=== PATIENT | female | born 1980 | race Caucasian/White ===

== ENCOUNTER → 2018-06-21 | Outpatient (CLI) | payer OTHER | LOC: FIMAGING 09:44 | PROVIDERS: ATTEND Orthopaedic Surgery | DX: Z01.818 Encounter for other preprocedural examination (principal); M17.12 Unilateral primary osteoarthritis, left knee ==

== ENCOUNTER 2018-07-07 09:03 | Observation (INO) | payer OTHER ==
--- NOTE | 2018-07-07 06:18 | PDHPUP ---
History & Physical Update H&P update statement: This history and physical update is based on an assessment of the patient which was completed after admission or registration (within 24 hours), but prior to the surgery/procedure. H&P update: H&P reviewed & patient examined, no change in patient's condition since H&P completed
[~2018-07-07 09:03] MED LIST: ROPIVACAINE 0.2% 80 MG, EPINEPHrine 0.2 MG, KETOROLAC TROMETHAMINE 30 MG in SYRINGE 0 ML IU ONE; TRANEXAMIC ACID 3,000 MG in NS (SYRINGE) 50 ML IRR ONE; TRANEXAMIC ACID 3,000 MG/50 ML BAG IRR ONE; VANCOMYCIN 1 GM VIAL ONE
[2018-07-07] MEDS ORDERED: ACETAMINOPHEN 325 MG TAB PO ONE (09:24)
[2018-07-07] MEDS ORDERED: DEXAMETHASONE 4 MG/ML VIAL IVP ONE (09:24)
[2018-07-07] MEDS ORDERED: FAMOTIDINE 20 MG TAB PO ONE (09:24)
[2018-07-07] MEDS ORDERED: ceFAZolin 2 GM/DEXTROSE 100 ML IV ONE (09:24)
[2018-07-07] MEDS ORDERED: LR 1,000 ML IV ONE (09:26)
--- NOTE | 2018-07-07 09:43 | PDANEPAE ---
ANE History of Present Illness OA of knee ANE Past Medical History - Cardiovascular History Hx Hypertension: No Hx Arrhythmias: No Hx Chest Pain: No Hx Coronary Artery / Peripheral Vascular Disease: No Hx CHF / Valvular Disease: No Hx Palpitations: No - Pulmonary History Hx COPD: No Hx Asthma/Reactive Airway Disease: No Hx Recent Upper Respiratory Infection: No Hx Oxygen in Use at Home: No Hx Sleep Apnea: No Sleep Apnea Screening Result - Last Documented: Negative - Neurologic History Hx Cerebrovascular Accident: No Hx Seizures: No Hx Dementia: No - Endocrine History Hx Diabetes: No Hypothyroid: No Hyperthyroid: No Obesity: moderate - Renal History Hx Renal Disorders: No - Liver History Hx Hepatic Disorders: No - Neurological & Psychiatric Hx Hx Neurological and Psychiatric Disorders: No - Cancer History Hx Cancer: No - Congenital Disorder History Hx Congenital Disorders: No - GI History GERD: mild Hx Gastrointestinal Disorders: Yes Gastrointestinal History Comment: acid reflux - Other Health History Other Health History: none - Chronic Pain History Chronic Pain: Yes (right knee) - Surgical History Prior Surgeries: 2016 knee scope ANE Review of Systems Review of systems is: negative Review of Systems: - Exercise capacity METS (RN): 4 METS ANE Patient History - Allergies Allergies/Adverse Reactions: No Known Allergies Allergy (Verified 06/23/18 16:41) - Home Medications Home medications: home medication list seen and reviewed Home Medications: Adderall 10 MG (*) 06/23/18 [Last Taken 07/05/18] Celebrex (*) 06/23/18 [Last Taken 07/06/18] Prilosec 06/23/18 [Last Taken 07/04/18] Trazodone HCl 06/23/18 [Last Taken 07/06/18] - NPO status NPO Status: no food or drink >8 hours NPO Since - Liquids (Date): 07/06/18 NPO Since - Liquids (Time): 20:00 NPO Since - Solids (Date): 07/06/18 NPO Since - Solids (Time): 16:00 - Anes Hx Anes Hx: no prior problems - Smoking Hx Smoking Status: Never smoked Marijuana use: No - Alcohol Use Alcohol Use: Rarely - Family Anes Hx Family Anes Hx: none Family Hx Anesthesia Complications: none ANE Labs/Vital Signs - Vital Signs Blood Pressure: 118/88 Heart Rate: 72 Respiratory Rate: 16 O2 Sat (%): 97 Height: 170.18 cm Weight: 108.862 kg ANE Physical Exam - Airway Neck exam: FROM Mallampati Score: Class 2 Mouth exam: normal dental/mouth exam - Pulmonary Pulmonary: no respiratory distress, clear to auscultation - Cardiovascular Cardiovascular: regular rate and rhythym, no murmur, rub, or gallop - ASA Status ASA Status: II ANE Anesthesia Plan Anesthesia Plan: spinal Regional Anesthesia: single shot NB
[2018-07-07] MEDS ORDERED: MIDAZOLAM 2 MG/2 ML VIAL ONE (10:46)
[2018-07-07] MEDS ORDERED: MIDAZOLAM 2 MG/2 ML VIAL IVP ONE (10:46)
[2018-07-07] MEDS ORDERED: LIDOCAINE 2% 5 ML SDV ONE (10:50)
[2018-07-07] MEDS ORDERED: PROPOFOL/EMULSION 500 MG/50 ML BOTTLE IV ONE ×2 (10:50→11:20)
[2018-07-07] MEDS ORDERED: ROPIVACAINE HCL 150 MG/30 ML INJ ONE (10:50)
[2018-07-07] MEDS ORDERED: BUPIVACAINE/DEXTROSE 7.5MG/ML 2 ML SPINAL AMP SP ONE ×2 (10:50→12:45)
--- NOTE | 2018-07-07 11:36 | POSTANESTH ---
Post Anesthetic Evaluation Cardiovascular Status: Normal, Stable Respiratory Status: Normal, Stable Level of Consciousness/Mental Status: Can Participate in Eval Pain Control: Adequate, Prn Tx Ordered Nausea/Vomiting Control: Adequate, Prn Tx Ordered Complications Possibly Related to Anesthesia: None Noted
[2018-07-07] MEDS ORDERED: LR 500 ML IV PRN (12:04)
[2018-07-07] MEDS ORDERED: HYDROmorphONE/DILAUDID 2 MG/ML INJ IVP PRN (12:04)
[2018-07-07] MEDS ORDERED: fentaNYL 100 MCG/2 ML INJ IVP PRN (12:04)
[2018-07-07] MEDS ORDERED: ONDANSETRON 4 MG/2 ML VIAL IVP PRN ×2 (12:04→12:28)
[2018-07-07] MEDS ORDERED: NALOXONE HCL 0.4 MG/ML INJ IVP PRN (12:04)
[2018-07-07] MEDS ORDERED: PROMETHAZINE HCL 25 MG/ML INJ IVP PRN ×2 (12:04→12:28)
[2018-07-07] MEDS ORDERED: POLYETHYLENE GLYCOL 3350 17 GM PKT PO PRN (12:28)
[2018-07-07] MEDS ORDERED: LACTULOSE 20 GM/30 ML UDCUP PO PRN (12:28)
[2018-07-07] MEDS ORDERED: MAGNESIUM HYDROXIDE 30 ML UDCUP PO PRN (12:28)
[2018-07-07] MEDS ORDERED: METOCLOPRAMIDE 10 MG/2 ML VIAL IVP PRN (12:28)
[2018-07-07] MEDS ORDERED: oxyCODONE IR 5 MG TAB PO PRN (12:28)
[2018-07-07] MEDS ORDERED: ONDANSETRON DISINTEGRATING 4 MG TAB PO PRN (12:28)
[2018-07-07] MEDS ORDERED: PROMETHAZINE HCL 25 MG SUPPR PR PRN (12:28)
[2018-07-07] MEDS ORDERED: BISACODYL 10 MG SUPP PR PRN (12:28)
[2018-07-07] MEDS ORDERED: diphenhydrAMINE 25 MG CAP PO PRN (12:28)
[2018-07-07] MEDS ORDERED: TEMAZEPAM 15 MG CAP PO PRN (12:28)
[2018-07-07] MEDS ORDERED: CYCLOBENZAPRINE 10 MG TAB PO PRN (12:28)
[2018-07-07] MEDS ORDERED: DIPHENOXYLATE/ATROPINE LOMOTIL 1 TAB PO PRN (12:28)
--- NOTE | 2018-07-07 12:28 | POSTOPPROG ---
Post Op Note Date of Operation: 07/07/18 Surgeon: Nella To Ointment Mill Tender: Neha To PA-C Anesthesiologist: Dr. Jaimee Brice Anesthesia: Spinal, Other (Specify) (adductor canal block) Pre-op Diagnosis: OA of left lateral knee Post-op Diagnosis: same Indication: left knee pain Procedure: left lateral PKA Findings: severe OA of left lateral knee Inf/Abcess present in the surg proc area at time of surgery?: No EBL: 50-100
[2018-07-07] MEDS ORDERED: LR 1,000 ML IV SCH (12:30)
[2018-07-07] MEDS ORDERED: DEXTROAMPHETAMINE PO PRN (18:04)
[2018-07-07] MEDS ORDERED: AMPHETAMINE PO PRN (18:04)
[2018-07-07] MEDS: ACETAMINOPHEN 325 MG TAB PO SCH (18:48)
[2018-07-07] MEDS: ceFAZolin 2 GM/DEXTROSE 100 ML IV SCH (18:48)
[2018-07-07] MEDS ORDERED: traZODone 50 MG TAB PO SCH (21:00)
[2018-07-07] MEDS ORDERED: NORTRIPTYLINE HCL 10 MG CAP PO SCH (21:00)
[2018-07-07] MEDS: SENNOSIDES/DOCUSATE SODIUM TAB PO SCH (21:03)
[2018-07-07] MEDS: FAMOTIDINE 20 MG TAB PO SCH (21:03)
[2018-07-07] MEDS: ASPIRIN 81 MG CHEWABLE TAB PO SCH (21:04)
[2018-07-08] MEDS: ACETAMINOPHEN 325 MG TAB PO SCH ×2 (01:04→05:46)
[2018-07-08] MEDS: ceFAZolin 2 GM/DEXTROSE 100 ML IV SCH (03:32)
[2018-07-08 07:48] VITALS: BP 143/82
[2018-07-08] MEDS: ASPIRIN 81 MG CHEWABLE TAB PO SCH (07:52)
[2018-07-08] MEDS: FAMOTIDINE 20 MG TAB PO SCH (07:52)
[2018-07-08] MEDS: SENNOSIDES/DOCUSATE SODIUM TAB PO SCH (07:52)
--- NOTE | 2018-07-08 09:01 | SOAPPROG ---
SOAP Progress Note Assessment/Plan: Assessment: Patient is doing well POD 1 s/p L lateral PKA Pain management: pain is well controlled on oral pain meds. VTE ppx: recommend aspirin 81 mg BID for 4 weeks, cont JAMES and SCDs Anemia: level is expected initially postop. Asymptomatic. Continue to monitor D/c planning: Patient has done better than anticipated and would like to be discharged to home today. Patient must be released from PT before discharge to home. postop urinary retention: straight cath'd yesterday, resolved today. Plan: 07/08/18 09:00 Subjective: patient is doing well today, denies SOB, chest pain and N/V Objective: Vital Signs Temp Pulse Resp BP Pulse Ox 36.9 C 82 18 143/82 H 98 07/08/18 07:40 07/08/18 07:40 07/08/18 07:40 07/08/18 07:40 07/08/18 07:40 Laboratory Results 07/08/18 04:23 07/07/18 07/08/18 07/09/18 05:59 05:59 05:59 Intake Total 3200 Output Total 2525 Balance 675 LLE: incision dressing is clean and dry, NVI, +pf/df ICD10 Worksheet Patient Problems: Problems Problem Status Onset Primary localized osteoarthritis of left knee Acute
--- NOTE | 2018-07-08 10:41 | ASMTLACE ---
JOSE ELIASE Length of stay for Answers: 2 days current admission Acuity / Level of Answers: No Care: Did the patient have an inpatient admission? Comorbidities - select Answers: Opioid dependence all that apply / Chronic pain # of Emergency department Answers: 0 visits in the last 6 months Score: 6 Date Signed: 07/08/2018 10:41 AM Electronically Signed By:SONIA Lezama
--- NOTE | 2018-07-08 11:01 | GDS ---
[f rep st] DISCHARGE SUMMARY ADMISSION DIAGNOSIS: Left knee osteoarthritis. DISCHARGE DIAGNOSIS: Left knee osteoarthritis. PROCEDURE: Left partial knee arthroplasty, lateral compartment, robotic assisted. VTE PROPHYLAXIS: Recommend aspirin 81 mg twice daily for 4 weeks. BRIEF DESCRIPTION OF HOSPITAL STAY: Patient was admitted for an elective joint arthroplasty. The pa felixnt tolerated the procedure well and has passed physical therapy. The patient was given appropriat e antibiotic prophylaxis and venous thromboembolism prophylaxis. The patient's pain was well control led on oral pain medication, patient was holding down food, and had urinated. Decision was made to d ischarge the patient. The patient was given post-operative prescriptions pre-operatively. PLAN: Please follow up as scheduled with Dr. To's office in 6 weeks. /[id number]/MODL
--- NOTE | 2018-07-08 17:03 | GOP ---
[f rep st] OPERATIVE REPORT DATE OF OPERATION: 07/07/2018 SURGEON: Esther To MD [employer] CONSULTANT: Chiara To PA-C, and Sita Hassan PA-C. ANESTHESIA: Spinal. PREOPERATIVE DIAGNOSIS: Left knee osteoarthritis. POSTOPERATIVE DIAGNOSIS: Left knee osteoarthritis. PROCEDURE PERFORMED: Left lateral compartment partial knee replacement __ navigation, robotic assist, LAMAR uni-knee. FINDINGS: ESTIMATED BLOOD LOSS: 30 cc. INDICATIONS: This is a 37-year-old female with progressive pain of the left knee unresponsive to conservative care. Risks and benefits of surgical intervention were explained in detail. DESCRIPTION OF PROCEDURE: The patient was brought to the operating room and placed on the table in supine position. Spinal anesthesia was induced without difficulty. A pneumatic tourniquet was applied about the left proximal thigh and the leg was prepped and draped in sterile fashion. Attention was turned first to the distal aspect of the left femur. At 3 cm proximal to the lateral rise of the femur, 2 percutaneous half pins were placed for fixation of the femoral array. In a similar fashion, 2 pins were placed anterolateral on the tibia for fixation of the tibial array. External land marking and registration of the hip center was performed without difficulty. After exsanguination by elevation, the tourniquet was inflated to 300 mmHg. Incision was made from the tibial tuberosity to the superior pole of the patella. Dissection was carried out through the subcutaneous tissue to the deep fascia using Bovie electrocautery for hemostasis. Lateral parapatellar arthrotomy was carried out to the superior pole of the patella. The lateral capsule was elevated and the infrapatellar fat pad was resected. Internal femoral and tibial registration was carried out without difficulty and the femoral and tibial checkpoints were placed and verified for accuracy. Attention was turned to the femur. The foot print for the size 3 femoral component was cut with the 6 mm bur using the [employer] robotic system and verified for accuracy against the CT based plan. The hole was cut for the femoral post. In a similar fashion, the 6 mm bur was used to cut the foot print for the size 2 tibial component using the NIKIA system and verified for accuracy against the CT based plan. Attention was turned to the posterior aspect of the knee and remnants of the medial meniscus were excised. The posterior capsule was injected with ropivacaine, epinephrine and Toradol. Trial reduction was carried out and there was excellent range of motion, alignment and stability using the size 3 femoral component and the size 2 tibial component, 2 x 8 mm polyethylene. All trials were then removed. The joint was thoroughly irrigated and carefully dried. One package of cement and 1 gram of vancomycin were mixed in the vacuum mixer and placed on the fixation surfaces of all components. The components were implanted and all excess cement was thoroughly removed. Implant placement was verified against the CT view plan and found to be excellent. The tourniquet was deflated and all bleeders were coagulated. The wound was thoroughly irrigated and closed using interrupted sutures of 2-0 Vicryl for the joint capsule. The subcu was closed with 3-0 Vicryl and the skin with 4-0 Monocryl. Dermabond and Steri-Strips were applied, followed by a compressive dressing. The patient was then moved from the operating room to the recovery room in good condition, having tolerated the procedure well. CASE CLASSIFICATION: Clean. /[id number]/MODL MTDD
== END 2018-07-08 09:36 | disposition home or self-care (01) ==
LOC: FSGY 09:03 → F3E 12:29 → F3N 15:06
PROVIDERS: ADMIT Orthopaedic Surgery; ATTEND Orthopaedic Surgery
DX: M17.12 Unilateral primary osteoarthritis, left knee (principal); N99.89 Other postprocedural complications and disorders of genitourinary system; R33.9 Retention of urine, unspecified; E66.09 Other obesity due to excess calories; K21.9 Gastro-esophageal reflux disease without esophagitis
CPT/HCPCS: 27446; 73560; 97116; 97161; 97530; G0378; C1713; J0171; J0690; J1100; J1885; J2250; J2704; J2795; J3370